=== PATIENT | male | born 1990 | race Caucasian/White ===

== ENCOUNTER 2020-02-19 13:28 | Emergency (ER) | payer BC, SELFPAY ==
--- NOTE | 2020-02-19 13:51 | HMH.EDUTC ---
[facility] [place] Disposition Clinical Impression: Sinusitis Qualifiers: Sinusitis location: maxillary Chronicity: acute Recurrence: non-recurrent Qualified Code(s): J01.00 - Acute maxillary sinusitis, unspecified Disposition: Home, Self-Care Condition on Discharge: Good Instructions: DI for Sinusitis Prescriptions: Amoxicillin/Potassium Clav [Augmentin 875-125 Tablet] 1 tab PO Q12H 10 Days #20 tab Transmission Status: Pending to [facility] #[id number] Referrals: Provider,Referral, [Primary Care Provider] - Time of Disposition: 14:03 Medical Decision Making - Luciano Inquiry Pt receiving controlled substance: No - Lab Data Lab results reviewed: Yes: I reviewed the patient's lab results. [facility] [place] HPI - General Stated complaint: head congestion, marco aches fever soa, weakness Time Seen by Provider: 02/19/20 13:51 - History of Present Illness Provider Complaint: Headache, sinus pain and pressure, body aches, chills, low grade fever since yesterday. History of sinuisitis. Took leftover antibiotics and feeling better. Denies ear pain. Sore throat since this am. No N/V/D. No known COVID19 exposure Onset (ago): day(s) (2) Location: face Relieving factors: none Exacerbating factors: none Associated symptoms: denies other symptoms Treatments prior to arrival: other (antibiotics) - Related Data Previous Rx's Medication Instructions Recorded Amoxicillin/Potassium Clav 1 tab PO Q12H 10 Days #20 tab 02/19/20 [Augmentin 875-125 Tablet] Allergies Allergy/AdvReac Type Severity Reaction Status Date / Time No Known Allergies Allergy Verified 01/04/20 15:11 [facility] History - Hepatitis A Screen Attestation statement:: This patient has been screened for Hepatitis A risk factors. I have reviewed the patient's past medical history: Yes Medical History: Denies:: Cancer, Diabetes Mellitus Type 1, Diabetes Mellitus Type 2, Internal Pacemaker, MRSA, Seizures Other Surgeries: No: Pacemaker Amputation: No Fractures: No Comment: Vasectomy - Social History Smoking Status: Never smoker # Packs/Day (cigarettes): 0 Alcohol Intake: former Alcohol Intake Frequency:: a few times a month Substance Use Type: denies use Occupational Status: employed Housing: house Family Hx:: Unable to obtain ROS Obtained: Yes All systems reviewed & no additional complaints - Constitutional Constitutional: Reports body ache, Reports chills, Reports fever(s), Reports malaise - ENT Ears, Nose, Mouth, and Throat: Reports sinus pain, Reports sinus pressure - Respiratory Respiratory: Yes cough Physical Exam - General General appearance: alert, in no apparent distress - Head Head exam: atraumatic, normocephalic, normal inspection - Eye Eye exam: Present: normal appearance, PERRL, EOMI - ENT ENT exam: Present: normal exam, normal oropharynx, mucous membranes moist, TM's normal bilaterally, normal external ear exam - Expanded ENT Exam Nose exam: Present: sinus tenderness Throat exam: Present: tonsillar erythema - Neck Neck exam: Present: normal inspection, full ROM, trachea midline. Absent: meningismus, lymphadenopathy - Chest Chest inspection: Present: normal inspection, symmetric chest wall rise. Absent: tenderness - Respiratory Respiratory exam: Present: normal lung sounds bilaterally. Absent: respiratory distress - Cardiovascular Cardiovascular exam: Present: regular rate, normal rhythm. Absent: JVD - Abdominal Exam Abdominal exam: Present: soft, normal bowel sounds. Absent: distention, tenderness, guarding - Extremities Exam Extremities exam: Present: normal inspection, full ROM, normal capillary refill. Absent: calf tenderness - Back Exam Back exam: Present: normal inspection. Absent: tenderness - Neurological Exam Neurological exam: Present: alert, oriented X3 - Psychiatric Psychiatric exam: Present: normal affect, normal mood - Skin Skin exam: Present: warm, dry, intact, normal col
[2020-02-19 13:53] VITALS: BP 175/87; PULSE 95; RESP 18; TEMP 36.6; O2SAT 98; BMI 31.1
[2020-02-19 14:10] LABS: UTC Influenza A Antigen Negative (Negative); UTC Influenza B Antigen Negative (Negative); UTC Strep Screen (Rapid) Negative (Negative)
[2020-02-19 14:48] VITALS: BP 175/87; PULSE 95; RESP 18; TEMP 36.6; O2SAT 98
== END 2020-02-19 14:49 | disposition home or self-care (01) ==
PROVIDERS: Emergency Provider Physician Assistant
DX: J01.00 Acute maxillary sinusitis, unspecified (principal)
CPT/HCPCS: 87804; 87880; 99202

== ENCOUNTER → 2021-05-08 09:19 | Outpatient (CLI) | payer BC, SELFPAY ==
--- NOTE | 2021-05-08 | ECG_ITS ---
APPROVED REPORT Exam: Resting ECG HR:71 bpm ECG Measurements Heart Rate 71 AXES UT 128 P 45 QRSd 90 QRS 63 QT 374 T 20 QTc 406 Conclusion Normal sinus rhythm Normal ECG Electronically signed by : Brendon Choi, 05/08/2021 17:31:39
--- NOTE | 2021-05-08 09:34 | XR_ITS ---
PROCEDURE: XR CHEST 2V CLINICAL HISTORY: CHEST PAIN,UNSPECIFIED COMPARISON: No exams were available for comparison FINDINGS: The cardiomediastinal silhouette and pulmonary vascularity are within normal limits. The lungs are clear without infiltrates, suspicious nodules, or pleural effusions. No acute bony abnormalities. IMPRESSION: No acute findings. Dictated by: Benjamin Sheridan MD 05/08/2021 10:03 Benjamin Sheridan MD in [place] 05/08/2021 10:03
[2021-05-08 10:08] LABS: Hemoglobin A1C 5.1 % (4.0-6.0)
[2021-05-08 10:24] LABS: Chloride 104 mmol/L (98-107); Potassium 3.8 mmoL/L (3.5-5.1); Sodium 142 mmol/L (136-145)
[2021-05-08 10:26] LABS: Alanine Aminotransferase 29 U/L (12-78); Aspartate Amino Transferase 24 U/L (17-59); Blood Urea Nitrogen 14 mg/dl (9-20); Estimated Glomerular Filt Rate 71 ml/min (>60); GFR (African American) 85 ML/MIN (>60)
[2021-05-08 10:27] LABS: Albumin Level 4.5 g/dl (3.5-5.0); Albumin/Globulin Ratio 1.4 (1.1-1.8); Alkaline Phosphatase 88 U/L (38-126); Anion Gap 14.8 mEq/L (5-15); Bilirubin,Total 0.3 mg/dl (0.2-1.3); Carbon Dioxide 27 mmol/L (22.0-30.0); Chol/HDL Ratio 5.5 (1-3.5); Cholesterol 199 mg/dl (140-200); Globulin 3.3 g/dL (1.3-3.2); Glucose 98 mg/dl (74-100); HDL Cholesterol 36 mg/dl (40-60); Total Protein,Serum 7.8 g/dl (6.3-8.2); Triglycerides 193 mg/dl (30-150); VLDL Cholesterol 39 mg/dL (0-40)
[2021-05-08 10:38] LABS: Direct LDL Cholesterol 104.27 mg/dL (100-129)
== END ==
PROVIDERS: Visit Provider Family Medicine
DX: R07.9 Chest pain, unspecified (principal); R03.0 Elevated blood-pressure reading, without diagnosis of hypertension; R63.1 Polydipsia
CPT/HCPCS: 36415; 71046; 80053; 80061; 83036; 84443; 93005

== ENCOUNTER 2021-08-17 11:26 | Emergency (ER) | payer BC, SELFPAY ==
[2021-08-17 11:27] VITALS: BP 128/81; PULSE 81; RESP 19; TEMP 36.8; O2SAT 99; BMI 29.0
--- NOTE | 2021-08-17 12:35 | HMH.EDUTC ---
[facility] [place] Clinical Impression: Frequent urination Disposition: Home, Self-Care Condition on Discharge: Good Instructions: Urine Volume Additional Instructions: Follow up with your Family Doctor if symptoms persist Follow up with Dr Hunter if you continue to have urinary symptoms for further evaluation Return if needed Straight to ER if any life threatening symptoms Referrals: Provider,Referral, [Primary Care Provider] - As needed Time of Disposition: 12:38 Medical Decision Making - Luciano Inquiry Pt receiving controlled substance: No Luciano was queried for this patient: No Vital Signs: 08/17/21 11:27 Temperature 98.3 F Temperature Source Oral Pulse Rate [Right Radial] 81 Respiratory Rate 19 Blood Pressure [Right Arm] 128/81 Blood Pressure Mean [Right Arm] 96 02 Sat by Pulse Oximetry 99 - Lab Data Lab results reviewed: Yes: I reviewed the patient's lab results. [facility] [place] - General Stated complaint: possible uti Time Seen by Provider: 08/17/21 12:36 Mode of Arrival: Ambulatory Source of Information: Patient Limitations: No Limitations Description of Symptoms (Recalled from Triage Doc. by RN): Pt c/o frequent urination and possible UTI HEENT Symptoms (Recalled from RN notes): No Resp Symptoms (Recalled from RN notes): No Skin Symptoms (Recalled from RN notes): No MS Symptoms (Recalled from RN notes): No Functional Status (Recalled from RN notes): n/a - History of Present Illness Provider Complaint: Patient states that he wanted to get checked for UTI States that his had a UTI last week and now he noticed he was urinating more than usual and he was worried that he may have UTI and wanted to get checked - Related Data Previous Rx's Medication Instructions Recorded Amoxicillin/Potassium Clav 1 tab PO Q12H 10 Days #20 tab 02/19/20 [Augmentin 875-125 Tablet] Allergies Allergy/AdvReac Type Severity Reaction Status Date / Time No Known Allergies Allergy Verified 01/04/20 15:11 - Worker's Comp Is this a Worker's Comp case?: No [facility] History - Hepatitis A Screen Drug use history?: No High risk sexual behaviors?: No History of sexually transmitted infection?: No Currently employed?: No Childcare worker?: No Do you have indoor plumbing?: Yes Do you have electricity?: Yes Attestation statement:: This patient has been screened for Hepatitis A risk factors. I have reviewed the patient's past medical history: Yes Medical History: Denies:: Cancer, Diabetes Mellitus Type 1, Diabetes Mellitus Type 2, Internal Pacemaker, MRSA, Seizures Other Surgeries: No: Pacemaker Amputation: No Fractures: No Comment: Vasectomy - Social History Smoking Status: Never smoker # Packs/Day (cigarettes): 0 Alcohol Intake: never Alcohol Intake Frequency:: a few times a month Substance Use Type: denies use Occupational Status: other Housing: house Family Hx:: Unable to obtain ROS Obtained: Yes All systems reviewed & no additional complaints, Yes Systems reviewed as appropriate & no additional complaints - Constitutional Constitutional: Reports system reviewed and no additional complaints, except as docu, Denies chills, Denies fever(s) - ENT Ears, Nose, Mouth, and Throat: Reports system reviewed and no additional complaints, except as docu - Cardiovascular Cardiovascular: Reports system reviewed and no additional complaints, except as docu - Respiratory Respiratory: Reports system reviewed and no additional complaints, except as docu - Gastrointestinal Gastrointestingal: Reports: system reviewed and no additional complaints, except as docu. Denies: abdominal pain, cramping - Genitourinary Male Genitourinary: Reports system reviewed and no additional complaints, except as docu, Reports urinary frequency, Reports urinary urgency Physical Exam - General General appearance: alert, in no apparent distress - Respiratory Respiratory exam: Present: normal lung sounds bilatera
[2021-08-17 12:38] LABS: Apearance,Urine Clear (Clear); Color,Urine Yellow (Yellow)
[2021-08-17 12:39] LABS: Bilirubin,Urine Negative (Negative); Blood, Urine Negative (Negative); Glucose,Urine (UA) Negative (Negative); Ketones,Urine Negative (Negative); Protein,Urine Negative (Negative); UTC Leukocyte Esterase,Urine Negative (Negative); UTC Nitrate,Urine Negative (Negative); Urobilinogen,Urine 0.2 EU/dl (0.2)
[2021-08-17 12:45] VITALS: BP 128/81; PULSE 81; RESP 19; TEMP 36.8; O2SAT 99
== END 2021-08-17 12:46 | disposition home or self-care (01) ==
PROVIDERS: Emergency Provider Nurse Practitioner
DX: R35.0 Frequency of micturition (principal)
CPT/HCPCS: 81003; 99202; G0463

== ENCOUNTER 2022-08-31 09:16 | Emergency (ER) | payer BC, SELFPAY ==
[2022-08-31 09:38] VITALS: BP 155/90; PULSE 86; RESP 18; TEMP 37.3; O2SAT 97; BMI 31.4
--- NOTE | 2022-08-31 09:47 | EXP.UTC ---
Discharge Plan Disposition Patient Disposition: Home, Self-Care Condition: Good Prescriptions Prescriptions: New doxycycline monohydrate 100 mg tablet 100 mg PO BID Qty: 20 0RF No Action amoxicillin-pot clavulanate 1 EACH tablet 1 tab PO Q12H 10 Days Qty: 20 0RF Referrals Follow up/Referrals: Joy Lerma PA [Primary Care Provider] - See instructions Activity Restrictions/Add. Instructions Additional Instructions/Restrictions: Change antibiotics to doxycycline. Keep clean and dry. Epsom salt soaks followed by drawing salve. Return to [facility] if symptoms worse, streaking up arm, etc. COVID test pending. Clinical Impressions Clinical Impression: Splinter in skin, Abscess of hand, left Instructions Patient Instructions: DI for Cellulitis -- Adult Discharge ED Provider: Mare Su [facility] [place] HPI General Stated complaint: Fever, headache Mode of Arrival: Ambulatory Source of Information: Patient Limitations: No Limitations Time Seen by Provider: 08/31/22 09:48 Description of Symptoms (Recalled from Triage Doc. by RN): Pt c/o FLETCHER, fever, sore throat, bodayches and weakness x1 week HEENT Symptoms (Recalled from RN notes): Yes (sore throat, FLETCHER) Resp Symptoms (Recalled from RN notes): No Skin Symptoms (Recalled from RN notes): No MS Symptoms (Recalled from RN notes): Yes (bodyaches, weakness) Functional Status (Recalled from RN notes): n/a History of Present Illness Provider Complaint: Patient got splinter in palm of left hand, at base of thumb, 8 days ago. Splinter was from treated fence post. He got a tetanus shot (unsure if Td or Tdap) the next day. Started on Augmentin. 2 days later, started having body aches, chills, headache, malaise. Still has pus draining from left hand and can feel splinter under the skin. Isn't sure if he has a worsening infection, a reaction to the tetanus shot, or a coincidental illness. Onset (ago): day(s) (8) Location: left and upper extremity Severity: moderate Consistency: constant Relieving factors: none Exacerbating factors: none Associated symptoms: fever/chills, headaches and malaise Treatments prior to arrival: other (Augmentin) Related Data Previous Rx's Medication Instructions Recorded amoxicillin 875 mg-potassium 1 tab PO Q12H 10 days #20 tabs 02/19/20 clavulanate 125 mg tablet doxycycline monohydrate 100 mg 100 mg PO BID #20 tabs 08/31/22 tablet Allergies Allergy/AdvReac Type Severity Reaction Status Date / Time No Known Allergies Allergy Verified 01/04/20 15:11 Worker's Comp Is this a Worker's Comp case?: No PFSH PFSH Social History Smoking Status: Never smoker second hand exposure: No alcohol intake: never substance use type: denies use current occupational status: other Travel in the last 8 weeks: None housing: house caffeine: Yes ROS Obtained: Yes All systems reviewed & no additional complaints except as documented Constitutional Constitutional: Reports fever(s), Reports headache(s) and Reports malaise ENT Ears, Nose, Mouth, and Throat: Reports headache(s) and Reports sore throat Musculoskeletal Musculoskeletal: Reports as per HPI Neurologic Neurologic: Reports headache(s) Physical Exam General General appearance: alert and in no apparent distress Head Head exam: atraumatic and normocephalic Eye Eye exam: Present PERRL ENT ENT exam: Present normal exam, normal oropharynx and TM's normal bilaterally Neck Neck exam: Present normal inspection Chest Chest inspection: Present normal inspection and symmetric chest wall rise Respiratory Respiratory exam: Present normal lung sounds bilaterally and respiratory distress Cardiovascular Cardiovascular exam: Present regular rate and normal rhythm Expanded Upper Extremity Exam Left: Hand exam: Present tenderness, swelling and erythema Hand L/R front image: 1. other (puncture wound) Neurological Exam Neurological exam: Present alert a
[2022-08-31 09:57] LABS: UTC Strep Screen (Rapid) Negative (Negative)
--- NOTE | 2022-08-31 10:12 | XR_ITS ---
FINAL REPORT CLINICAL HISTORY: treated hand splinter, still draining FINDINGS: LEFT HAND 3 views of the left hand were obtained. There is no acute fracture or dislocation. Visualized joint spaces are normally aligned. Soft tissues are unremarkable. No foreign body is identified. IMPRESSION: No acute bony abnormality. No foreign body identified. Reviewed, Interpreted and Dictated by Elvin Muñiz III, MD Transcribed by Suzette Odom Authenticated and [facility]
--- NOTE | 2022-08-31 10:15 | PC.NURSE ---
Notified rad of xray
[2022-08-31 10:48] VITALS: BP 155/90; PULSE 86; RESP 18; TEMP 37.3; O2SAT 97
== END 2022-08-31 10:48 | disposition home or self-care (01) ==
PROVIDERS: Emergency Provider Physician Assistant; PCP Physician Assistant
DX: L02.512 Cutaneous abscess of left hand (principal); S60.552A Superficial foreign body of left hand, initial encounter
CPT/HCPCS: 73130; 87880; 99282; C9803; U0003; U0005

== ENCOUNTER 2024-01-30 13:27 | Emergency (ER) | payer BC, SELFPAY ==
--- NOTE | 2024-01-30 13:25 | ECG_ITS ---
APPROVED REPORT Exam: Resting ECG HR:95 bpm ECG Measurements Heart Rate 95 AXES MA 141 P 50 QRSd 88 QRS 54 QT 325 T 42 QTc 377 Conclusion SINUS RHYTHM NORMAL ECG Electronically signed by : MARIANA BOYER, 01/30/2024 21:51:33
[2024-01-30 13:27] VITALS: BP 138/96; PULSE 104; RESP 20; TEMP 36.8; O2SAT 96; BMI 4686.6
--- NOTE | 2024-01-30 13:34 | PC.NURSE ---
er at bedside
[2024-01-30 13:36] VITALS: PULSE 104
--- NOTE | 2024-01-30 13:38 | XR_ITS ---
FINAL REPORT CLINICAL HISTORY: cp COMPARISON: None FINDINGS: A single portable view of the chest was obtained. The heart size and pulmonary vascularity are within normal limits. The mediastinum is within normal limits. No acute pulmonary abnormality is identified. The bony thorax is intact. IMPRESSION: No active cardiopulmonary disease. Reviewed, Interpreted and Dictated by Elvin Muñiz III, MD Transcribed by Makenna Ball Authenticated and . [facility]
[2024-01-30] MEDS: ASPIRIN 81MG CHEWABLE TABLET 324 MG PO (13:44)
--- NOTE | 2024-01-30 13:46 | PC.NURSE ---
portable xray at bedside
--- NOTE | 2024-01-30 13:48 | [facility].EDCP ---
Discharge Plan Disposition Patient Disposition: Home, Self-Care Prescriptions Prescriptions: New atorvastatin 40 mg tablet 40 mg PO DAILY Qty: 30 1RF candesartan 16 mg tablet 16 mg PO DAILY Qty: 30 1RF Referrals Follow up/Referrals: Hermann Cai DO [Staff Physician] - See instructions Hermann Jenkins MD [Staff Physician] - See instructions Provider,MD Wang [Primary Care Provider] - See instructions Activity Restrictions/Add. Instructions Additional Instructions/Restrictions: Call your family doctor to establish care for this visit to the emergency department and schedule follow-up within 48 hours to ensure improvement. If you have any worsening of your condition or any other concerning signs or symptoms, return to the emergency department or your primary care doctor for further evaluation. Take your family doctor you got worked up for cardiac risk factors today in the emergency department. You have high cholesterol, high blood pressure. Atorvastatin and candesartan were sent to the pharmacy to treat these, respectively. Your hemoglobin A1c was pending, but will tell your family doctor about this. Be sure to stay hydrated, you were mildly dehydrated today. Clinical Impressions Clinical Impression: Chest pain, Hyperlipidemia, Hypertension Discharge ED Provider: Abad Yost HPI General Chief Complaint: Chest Pain Stated Complaint: Chest Pain Time Seen by Provider: 01/30/24 13:28 Mode of Arrival: Ambulatory Source of Information: Patient Limitations: No Limitations Description of Symptoms (Recalled from ER Triage Doc. 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 This been going on and off for the past couple of weeks. He supposed be on an antihypertensive, but does not take it due to side effects. States that he has right and substernal chest pressure that radiated up to his neck last night and through this morning. Chest pressure is nonexertional, nonpositional, intermittently comes and goes on its own time. Not related to p.o. intake. Associated with some shortness of breath with exertion, but no nausea, vomiting, diaphoresis, or any other concerns. Please note that above description of symptoms, in this electronic medical record under categorization of recalled from ER triage doctor by RN are reflective of an initial nursing assessment, however, is not reflective of my full history and physical exam that was personally taken and clarified. Consequentially, this preceding description of symptoms, which may include the patient's categorized chief complaint in the EMR, do not reflect my personal clinical impression, and the ultimate description of history of present illness and patient stated complaints should be deferred to this section of the note. Unless stated otherwise or congruent with this section of the note, additional signs, symptoms, or incongruence should be interpreted as inaccurate with my clinical impression. Related Data Previous Rx's Medication Instructions Recorded atorvastatin 40 mg tablet 40 mg PO DAILY #30 tabs 01/30/24 candesartan 16 mg tablet 16 mg PO DAILY #30 tabs 01/30/24 Allergies Allergy/AdvReac Type Severity Reaction Status Date / Time No Known Allergies Allergy Verified 01/30/24 13:36 [facility] Disclaimer: The information contained in this section may have been updated after the patient was seen, as this information can be updated by other users. Social History Smoking Status: Never smoker second hand exposure: No alcohol intake: never substance use type: denies use current occupational status: other Travel in the last 8 weeks: None housing: house caffeine: Yes ROS Obtained: Yes All systems reviewed & no additional complaints except as documented Physical Exam General General appearance: alert Neck Neck exam: Present trachea midline Chest Chest inspection: Present normal inspection and symmetric chest wall rise Respiratory Respiratory exam: Present normal lung sounds bilaterally; Absent respiratory distress, wheezes, stridor, accessory muscle use or prolonged expiratory phase Cardiovascular Cardiovascular exam: Present regular rate and normal rhythm Extremities Exam Extremities exam: Absent edema Neurological Exam Neurological exam: Present alert, oriented X3 and CN II-XII intact Skin Skin exam: Present warm and dry; Absent cyanosis, diaphoresis or pallor HEART Score HEART Score HEART Score assessment performed?: Yes HEART Score: 3 Critical Care Critical Care Time Critical Care Time: No Medical Decision Making Medical Records Medical records reviewed: Yes I reviewed the patient's medical records. Luciano Inquiry Pt receiving controlled substance: No Luciano was queried for this patient: No Vital Signs Vital Signs: 01/30/24 13:27 01/30/24 13:36 01/30/24 14:01 Temperature 98.2 F Temperature Source Oral Pulse Rate 104 H 90 Pulse Rate [Left Radial] 104 H Respiratory Rate 20 Blood Pressure 139/86 Blood Pressure [Right Arm] 138/96 H Blood Pressure Mean [Right Arm] 110 Blood Pressure Source [Right Arm] Automatic Cuff Blood Pressure Position [Right Arm] Sitting 02 Sat by Pulse Oximetry 96 96 Oxygen Delivery Method Room Air 01/30/24 14:30 01/30/24 14:49 Temperature 98.2 F Temperature Source Oral Pulse Rate 98 H 91 H Pulse Rate [Left Radial] Respiratory Rate 20 Blood Pressure 127/85 127/85 Blood Pressure [Right Arm] Blood Pressure Mean [Right Arm] Blood Pressure Source [Right Arm] Blood Pressure Position [Right Arm] 02 Sat by Pulse Oximetry 96 Oxygen Delivery Method Room Air Lab Data Labs: Lab Results 01/30/24 13:30: WBC 6.8, RBC 5.15, Hgb 15.2, Hct 44.5, MCV 86.4, MCH 29.4, MCHC 34.1, RDW 13.4, Plt Count 268, MPV 7.1 L, Neut % (Auto) 56.0, Lymph % (Auto) 34.2, [place] % (Auto) 7.6, Eos % (Auto) 1.4, Baso % (Auto) 0.9, Neut # (Auto) 3.8, Lymph # (Auto) 2.3, [place] # (Auto) 0.5, Eos # (Auto) 0.1, Baso # (Auto) 0.1, Sodium 139, Potassium 4.2, Chloride 106, Carbon Dioxide 27, Anion Gap 10.2, BUN 16, Creatinine 1.30 H, Estimated GFR 63, Est GFR ( Amer) 76, Glucose 104 H, Calcium 9.2, Total Bilirubin 0.5, AST 47, ALT 75, Alkaline Phosphatase 104, Troponin I < 0.01, NT-Pro-B Natriuret Pep 53.6, Total Protein 7.4, Albumin 4.4, Globulin 3.0, Albumin/Globulin Ratio 1.5, Triglycerides 301 H, Cholesterol 248 H, LDL Cholesterol Direct 125.93, VLDL Cholesterol 60 H, HDL Cholesterol 32 L, Cholesterol/HDL Ratio 7.8 H 01/30/24 13:30 01/30/24 13:30 Response Orders (Tests/Meds): ED MEDICATIONS Discontinued Medications Generic Name Dose Route Start Last Admin Trade Name Gilda PRN Reason Stop Dose Admin Aspirin 324 mg 01/30/24 13:38 01/30/24 13:44 Aspirin 81mg Chewable Tablet PO 01/30/24 13:39 324 mg ONCE ONE Administration ORDERS Category Date Time Status CXR --portable [XR chest portable] Stat Exams 01/30/24 13:38 Taken Brain Natriuretic Peptide Stat Lab 01/30/24 13:30 Completed CBC w/Auto Diff [Complete Blood Count Auto Diff] Stat Lab 01/30/24 13:30 Completed CMP [Comprehensive Metabolic Panel] Stat Lab 01/30/24 13:30 Completed Hemoglobin A1C Stat Lab 01/30/24 13:30 Received Lipid Panel Stat Lab 01/30/24 13:30 Completed Trop I [Troponin I] Stat Lab 01/30/24 13:30 Completed Troponin I Q3H Lab 01/30/24 16:45 Ordered Troponin I Q3H Lab 01/30/24 19:45 Ordered MDM Narrative Medical Decision Narrative: 3-year-old male history of hypertension presenting with chest pain. This been going on and off for the past couple of weeks. He supposed be on an antihypertensive, but does not take it due to side effects. States that he has right and substernal chest pressure that radiated up to his neck last night and through this morning. Chest pressure is nonexertional, nonpositional, intermittently comes and goes on its own time. Not related to p.o. intake. Associated with some shortness of breath with exertion, but no nausea, vomiting, diaphoresis, or any other concerns. She noted the patient has hypertension which is uncontrolled, which is likely complicating care. History was obtained via conversation with him and . On arrival, patient hemodynamically stable, alert, oriented x4, appropriate, GCS 15, moving all extremities spontaneously, pupils equal and reactive to light. Full physical exam performed and significant for very well-appearing male no acute distress. Speaking in full sentences, nondiaphoretic, mildly hypertensive. Nontachycardic. Lungs are clear to auscultation bilaterally, patient is neurovascularly intact. No extracardiac sounds, no evidence of lower extremity edema. No pulsatile abdominal mass. Differential includes ACS, MT, hypertensive chest pain, cardiac versus noncardiac chest pain, among others. Patient was given 324 mg aspirin for symptomatic management and correction of underlying abnormalities. Workup independently interpreted and significant for nonactionable CBC or chemistry. Patient mildly dehydrated, but tolerating p.o. intake without issue. Hypertriglyceridemia and hypercholesterolemia. Chest x-ray without acute cardiopulmonary airspace disease. See radiology read for full review of final results. Independent interpretation of EKG shows sinus rhythm 95 beats a minute no ST or T wave changes concerning for acute ischemia. Patient does have epsilon wave versus repolarization abnormality. CT, QRS, QT intervals within normal limits.. Patient placed on continuous cardiac monitoring and continuous pulse ox with initial blood pressure 138/96, heart rate 104, saturation 96 on room air. Because patient well-appearing and symptoms started more than 24 hours prior to this visit, single troponin was deemed appropriate. Troponin negative. Because patient hypertensive with hyperlipidemia, atorvastatin and candesartan were sent to the pharmacy of choice. Is recommended that he follow-up with his family doctor, he scheduled an appointment for tomorrow, 01/30. Cardiology referral was also recommended, information placed here and he is agreeable to outpatient management and workup. Because patient at baseline without signs or symptoms of clinical decompensation, deemed appropriate for discharge. Results were relayed to patient who voiced understanding and were agreeable to outpatient management and follow up. I discussed my clinical impression with patient and answered all questions. At this time, the evidence for any other entities in the differential is insufficient to warrant any further testing or ED observation. This was explained as well. Advisory was given that persistent or worsening symptoms require further evaluation. I confirmed the understanding of this discussion.
[2024-01-30 13:52] LABS: Basophils # 0.1 K/mm3 (0-0.2); Basophils % 0.9 % (0.1-2.0); Eosinophils # 0.1 K/mm3 (0.0-0.4); Eosinophils % 1.4 % (0.1-12.0); Hematocrit 44.5 % (42.0-52.0); Hemoglobin 15.2 g/dL (14.1-18.0); Lymphocytes # 2.3 K/mm3 (0.7-4.5); Lymphocytes % 34.2 % (10-50); Mean Corpuscular HGB Conc 34.1 g/dL (31.8-35.4); Mean Corpuscular Hemoglobin 29.4 pg (27.0-31.2); Mean Corpuscular Volume 86.4 fl (80-94); Mean Platelet Volume 7.1 fl (7.4-10.4); Monocytes # 0.5 K/mm3 (0.1-1.0); Monocytes % 7.6 % (1.7-9.3); Neutrophils # 3.8 K/mm3 (1.8-7.8); Platelet Count 268 K/mm3 (142-424); Red Blood Count 5.15 M/mm3 (4.60-6.20); Red Cell Distribution Width 13.4 % (11.5-17.5); White Blood Count 6.8 K/mm3 (4.8-10.8)
[2024-01-30 14:01] VITALS: BP 139/86; PULSE 90; O2SAT 96
--- NOTE | 2024-01-30 14:04 | PC.NURSE ---
at bedside. bed in lowest position. bp cycling. no questions or concerns voiced at this time. call light within reach.
[2024-01-30 14:08] LABS: Chloride 106 mmol/L (98-107)
[2024-01-30 14:09] LABS: Potassium 4.2 mmoL/L (3.5-5.1); Sodium 139 mmol/L (136-145)
[2024-01-30 14:11] LABS: Alanine Aminotransferase 75 U/L (12-78); Albumin Level 4.4 g/dl (3.5-5.0); Albumin/Globulin Ratio 1.5 (1.1-1.8); Alkaline Phosphatase 104 U/L (38-126); Anion Gap 10.2 mEq/L (5-15); Aspartate Amino Transferase 47 U/L (17-59); Bilirubin,Total 0.5 mg/dl (0.2-1.3); Blood Urea Nitrogen 16 mg/dl (9-20); Carbon Dioxide 27 mmol/L (22.0-30.0); Estimated Glomerular Filt Rate 63 ml/min (>60); GFR (African American) 76 ML/MIN (>60); Total Protein,Serum 7.4 g/dl (6.3-8.2)
[2024-01-30 14:12] LABS: Calcium 9.2 mg/dl (8.4-10.2); Chol/HDL Ratio 7.8 (1-3.5); Cholesterol 248 mg/dl (140-200); Glucose 104 mg/dl (74-100); HDL Cholesterol 32 mg/dl (40-60); Triglycerides 301 mg/dl (30-150); VLDL Cholesterol 60 mg/dL (0-40)
[2024-01-30 14:23] LABS: Direct LDL Cholesterol 125.93 mg/dL (100-129)
[2024-01-30 14:24] LABS: NT Pro Brain Natriuretic Pep. 53.6 pg/mL (0-125)
[2024-01-30 14:30] VITALS: BP 127/85; PULSE 98; O2SAT 96
[2024-01-30 14:34] LABS: Troponin I < 0.01 ng/ml (0.00-0.034)
[2024-01-30 14:49] VITALS: BP 127/85; PULSE 91; RESP 20; TEMP 36.8; O2SAT 96
[2024-01-30 15:18] LABS: Hemoglobin A1C 5.6 % (4.0-6.0)
== END 2024-01-30 14:58 | disposition home or self-care (01) ==
PROVIDERS: Emergency Provider Emergency Medicine
DX: R07.9 Chest pain, unspecified (principal); M54.2 Cervicalgia; R06.02 Shortness of breath; I10 Essential (primary) hypertension; E78.5 Hyperlipidemia, unspecified
CPT/HCPCS: 71045; 80053; 80061; 83036; 83880; 84484; 85025; 93005; 99285

== ENCOUNTER 2024-03-03 10:03 | Outpatient (CLI) | payer BC, SELFPAY | END 2024-03-03 23:59 | disposition home or self-care (01) | LOC: LAB.DROPOF 03-04 10:03 | PROVIDERS: PCP Student in an Organized Health Care Education/Training Program; Visit Provider Student in an Organized Health Care Education/Training Program | DX: R05.9 Cough, unspecified (principal); J02.0 Streptococcal pharyngitis; B95.0 Streptococcus, group A, as the cause of diseases classified elsewhere | CPT/HCPCS: 87070 ==

== ENCOUNTER 2024-03-11 12:13 | Outpatient (CLI) | payer BC, SELFPAY ==
--- NOTE | 2024-03-11 12:13 | CA_ITS ---
APPROVED REPORT EXAM: Comprehensive 2D, Doppler, and color-flow Echocardiogram Stroke Belt Sander Operator: Carin Hubbard, TEODORA, RVS Ht: 6 ft 0 in Wt: 248lbs BSA: 2.33 BP: 145/73 mmHg Indications: CP, Abn EKG, HTN, HLD, Family h/o heart disease 2D Dimensions Left Atrium 3.22 cm M: 3.0 - 4.0 LA Volume 51.80 mL LA Volume Index 22.23 mL/m2 (M/F) 16-34 M-Mode Dimensions RVDd 2.47 cm (0.9-2.6) LA Diam 3.37 cm (1.9-4.0) LVDd 4.59 cm (3.5-5.7) LVDs 3.28 cm (3.5-5.7) IVSd 1.00 cm (0.6-1.1) PWd 0.91 cm (0.6-1.1) EF (Teich) 55.10% EPSs 0.47 cm FS 28.50% EDV (Teich) 96.80 mL TAPSE 2.00 (<1.7) ESV (Teich) 43.50 mL LV Diastology E Decel Time 167 (160-240 msec) E/A Ratio 1.17 MED A' 9.00 cm/s LAT A' 8.00 cm/s Aortic Valve EULALIA Index 1.29 cm2/m2 AoV Peak Cleve. 114.0 (50-130 cm/s) AO Peak GR. 5.20 mmHg AO Mean GR. 2.60 (<5 mmHg) AO VTI 22.4 (18-25 cm) EULALIA (VTI) 3.09 (2.5-4.5 cm2) Mitral Valve MV A Velocity 70.0 (40-130 cm/s) E/A Ratio 1.17 Pulmonary Valve PV Peak Velocity 84.0 (50-150 cm/s) MT End VMAX 147.0 cm/s Tricuspid Valve TR P. Velocity 159.00 cm/s RAP Estimate 10.00 mmHg RVSP 20.10 mmHg Left Ventricle The left ventricle is normal size. The left ventricular systolic function is normal. The left ventricular ejection fraction is within the normal range. There is normal left ventricular wall thickness. There is normal LV segmental wall motion. The left ventricular diastolic function is normal. LVEF is 50-55%. Right Ventricle The right ventricle is normal size. The right ventricular systolic function is normal. Atria The left atrium size is normal. The right atrium size is normal. There is no Doppler evidence of interatrial shunt. Aortic Valve The aortic valve opens well. There is no aortic valvular stenosis. No aortic regurgitation is present. Mitral Valve The mitral valve is normal in structure. No evidence of mitral valve stenosis. Trace mitral regurgitation. Tricuspid Valve The tricuspid valve leaflets are thin and pliable. Trace tricuspid regurgitation. There is insufficient TR jet to estimate RVSP. Pulmonic Valve The pulmonary valve is normal in structure. Trace pulmonic regurgitation. Great Vessels The aortic root is normal in size. The ascending aorta is not well visualized. IVC is normal in size and collapses >50% with inspiration. Pericardium There is no pericardial effusion. Other Information Study Quality: Fair Conclusion Normal biventricular systolic function. No significant valvular stenosis or regurgitation. Electronically signed by : Stacey Villa MD 03/15/2024 19:01:35
--- NOTE | 2024-03-11 14:17 | CA_ITS ---
APPROVED REPORT Exam: Exercise Treadmill Technologist: Sendy Israel Ht: 6 ft 0 in Wt: 243 lbs BSA: 2.31 m2 HR: 78 bpm BP: 124/89 mmHg Rhythm: NSR Indications: Abnormal ekg Medical History Medications: Atorvastatin,,,,, CaNDESARTAN,,,,, Stress Test Details Test: Dany HR Resting HR: 86 bpm Max Heart Rate (APMHR): 186 bpm Max HR Achieved: 174 bpm Target HR (85% APMHR): 158 bpm % of APMHR: 94 Recovery HR: 98 bpm HR response to stress: Normal HR response to stress BP Resting BP: 124.0/89.0 mmHg Max BP: 186.0/88.0 mmHg Recovery BP: 134.0/92.0 mmHg BP response to stress: Normal blood pressure response to stress. ECG Resting ECG: Normal sinus rhythm Stress ECG: < 0.[address] depression Arrhythmia: None Recovery ECG: Return to baseline within 3 minutes of recovery Recovery Arrhythmia: None Clinical Exercise duration: 09:52 min Highest Stage Achieved: Exercise capacity: 12.8 METs Overall Exercise Capacity for Age: Average Stress ECG Conclusion Patient exercised 9:52 on Dany Protocol. Test stopped due to leg fatigue and shortness of breath. He was able to achieve a total of 12.8 METS. He has average exercise capacity compared to age and sex matched peers. He has normal HR and BP response to exercise. Symptoms: Slight increase in pre test chest discomfort with exercise. Arrhythmias/Ectopy: None ST-T Changes: Normal ST response to exercise. Conclusion: Average exercise capacity. Chest pain at peak stress. At peak stress, no evidence of ST changes was noted. Overall normal GXT. GXT only (no imaging). Test Summary REST . . . . . . . Sitting REST . . . . . . . Standing REST 02:18 0.0 0.0 86 . 124/ 89 . . Stage 1 01:00 10.0 1.7 105 . . . . Stage 1 02:00 10.0 1.7 108 . . . . Stage 1 03:00 10.0 1.7 109 . 150/ 90 . . Stage 2 01:00 12.0 2.5 120 . . . . Stage 2 02:00 12.0 2.5 122 . . . . Stage 2 03:00 12.0 2.5 128 . 156/ 90 . . Stage 3 01:00 14.0 3.4 142 . . . . Stage 3 02:00 14.0 3.4 148 . . . . Stage 3 03:00 14.0 3.4 155 . 186/ 88 . . Stage 4 00:52 16.0 4.2 172 . . . Stop exercise at 09:52 RECOVERY 01:00 0.0 0.0 148 . . . . RECOVERY 02:00 0.0 0.0 115 . . . . RECOVERY 03:00 0.0 0.0 105 . 150/ 95 . . RECOVERY 04:00 0.0 0.0 103 . 150/ 95 . . RECOVERY 05:00 0.0 0.0 100 . 156/ 90 . . RECOVERY 06:00 0.0 0.0 99 . 171/ 87 . . RECOVERY 07:00 0.0 0.0 101 . 171/ 87 . . RECOVERY 08:00 0.0 0.0 99 . 134/ 92 . . RECOVERY 08:12 0.0 0.0 99 . 134/ 92 . . Electronically signed by : Stacey Villa MD 03/17/2024 01:22:53
== END 2024-03-11 23:59 | disposition home or self-care (01) ==
LOC: RT 12:13
PROVIDERS: PCP Student in an Organized Health Care Education/Training Program; Visit Provider Internal Medicine
DX: R94.31 Abnormal electrocardiogram [ECG] [EKG] (principal); R07.9 Chest pain, unspecified; E78.5 Hyperlipidemia, unspecified; I10 Essential (primary) hypertension; E66.9 Obesity, unspecified; Z68.32 Body mass index [BMI] 32.0-32.9, adult; Z82.49 Family history of ischemic heart disease and other diseases of the circulatory system
CPT/HCPCS: 93017; 93018; 93306

== ENCOUNTER 2024-07-21 09:24 | Outpatient (CLI) | payer BC, SELFPAY ==
--- NOTE | 2024-07-21 09:42 | XR_ITS ---
FINAL REPORT CLINICAL HISTORY: low back pain after fall COMPARISON: None FINDINGS: LUMBAR SPINE: AP and lateral views of the lumbar spine were obtained. There is no prior exam for comparison. There is no acute fracture or malalignment. Vertebral body height is preserved. Disc space height is preserved. No acute paraspinal abnormality. IMPRESSION: No acute bony abnormality identified. Reviewed, Interpreted and Dictated by Elvin Muñiz III, MD Transcribed by Makenna Blal Authenticated and [facility]
--- NOTE | 2024-07-21 09:42 | XR_ITS ---
FINAL REPORT CLINICAL HISTORY: RLE pain, knot after fall COMPARISON: None FINDINGS: RIGHT TIBIA FIBULA: There is no acute fracture or dislocation. The joint spaces are intact. There is no soft tissue abnormality. IMPRESSION: No acute fracture Reviewed, Interpreted and Dictated by Elvin Muñiz III, MD Transcribed by Makenna Ball Authenticated and [facility]
[2024-07-21 10:24] LABS: Basophils # 0.1 K/mm3 (0-0.2); Basophils % 0.9 % (0.1-2.0); Eosinophils # 0.1 K/mm3 (0.0-0.4); Eosinophils % 1.1 % (0.1-12.0); Hemoglobin 15.4 g/dL (14.1-18.0); Lymphocytes % 33.6 % (10-50); Mean Corpuscular HGB Conc 32.8 g/dL (31.8-35.4); Mean Corpuscular Volume 88.5 fl (80-94); Mean Platelet Volume 8.3 fl (7.4-10.4); Monocytes # 0.5 K/mm3 (0.1-1.0); Monocytes % 8.6 % (1.7-9.3); Neutrophils # 3.3 K/mm3 (1.8-7.8); Neutrophils % 55.8 % (37.0-80.0); Platelet Count 276 K/mm3 (142-424); Red Cell Distribution Width 14.2 % (11.5-17.5)
[2024-07-21 10:36] LABS: Hemoglobin A1C 5.5 % (4.0-6.0)
[2024-07-21 10:52] LABS: Alanine Aminotransferase 45 U/L (12-78); Albumin Level 4.4 g/dl (3.5-5.0); Albumin/Globulin Ratio 1.2 (1.1-1.8); Alkaline Phosphatase 76 U/L (38-126); Anion Gap 9.8 mEq/L (5-15); Aspartate Amino Transferase 36 U/L (17-59); Bilirubin,Total 0.5 mg/dl (0.2-1.3); Blood Urea Nitrogen 22 mg/dl (9-20); Calcium 9.7 mg/dl (8.4-10.2); Carbon Dioxide 29 mmol/L (22.0-30.0); Chloride 105 mmol/L (98-107); Chol/HDL Ratio 5.3 (1-3.5); Cholesterol 251 mg/dl (140-200); Estimated Glomerular Filt Rate 76 ml/min (>60); GFR (African American) 92 ML/MIN (>60); Globulin 3.6 g/dL (1.3-3.2); Glucose 99 mg/dl (74-100); HDL Cholesterol 47 mg/dl (40-60); Potassium 4.8 mmoL/L (3.5-5.1); Sodium 139 mmol/L (136-145); Triglycerides 168 mg/dl (30-150); VLDL Cholesterol 34 mg/dL (0-40)
[2024-07-21 11:03] LABS: Direct LDL Cholesterol 143.74 mg/dL (100-129)
[2024-07-21 11:09] LABS: 25-OH Vitamin D, Total 42.9 ng/mL (30-100)
[2024-07-21 11:24] LABS: Thyroid Stimulating Hormone 2.12 uIU/mL (0.465-4.68)
[2024-07-21 12:00] LABS: Vitamin B12 484 pg/mL (239-931)
[2024-07-21 12:02] LABS: Folate 4.67 ng/mL
[2024-07-21 12:06] LABS: Iron 87 ug/dL (49-181)
[2024-07-21 12:16] LABS: Total Iron Binding Capacity 295 ug/dL (261-462)
[2024-07-21 12:42] LABS: Ferritin 89.5 ng/ml (17.9-464)
[2024-07-21 13:45] LABS: HIV (1&2) Antibody Rapid NONREACTIVE (NONREACTIVE)
[2024-07-22 08:49] LABS: HCV Ab Non Reactive (Non Reactive)
[2024-08-01 21:07] LABS: Testosterone, Total, LC/MS 372 ng/dL (.)
== END 2024-07-21 23:59 | disposition home or self-care (01) ==
PROVIDERS: PCP Student in an Organized Health Care Education/Training Program; Visit Provider Student in an Organized Health Care Education/Training Program
DX: R53.83 Other fatigue (principal); Z11.59 Encounter for screening for other viral diseases; E78.2 Mixed hyperlipidemia; I10 Essential (primary) hypertension; Z13.21 Encounter for screening for nutritional disorder; Z13.29 Encounter for screening for other suspected endocrine disorder; R73.9 Hyperglycemia, unspecified; Z11.4 Encounter for screening for human immunodeficiency virus [HIV]; M79.604 Pain in right leg; W19.XXXA Unspecified fall, initial encounter; M54.50 Low back pain, unspecified
CPT/HCPCS: 36415; 72100; 73590; 80050; 80053; 80061; 82306; 82607; 82728; 82746; 83036; 83540; 83550; 84403; 84443; 85025; 86803; 87389

== ENCOUNTER 2024-07-22 13:06 | Outpatient (CLI) | payer BC, SELFPAY ==
--- NOTE | 2024-07-22 13:07 | CA_ITS ---
FINAL REPORT TECHNIQUE: Color Doppler, duplex Doppler and compression sonography of the right lower extremity venous system was performed. CLINICAL HISTORY: RLE PAIN,KNOT FRONT OF PROXIMAL SHERMAN S/P FALL COMPARISON: None FINDINGS: There is no evidence of deep venous thrombosis right lower extremity from the level of the groin to the calf. The veins are patent and compressible. IMPRESSION: No evidence of deep venous thrombosis right lower extremity. Reviewed, Interpreted and Dictated by Elvin Muñiz III, MD Transcribed by Makenna Ball Authenticated and [facility]
== END 2024-07-22 23:59 | disposition home or self-care (01) ==
LOC: RT 13:06
PROVIDERS: PCP Student in an Organized Health Care Education/Training Program; Visit Provider Student in an Organized Health Care Education/Training Program
DX: M79.604 Pain in right leg (principal)
CPT/HCPCS: 93971

== ENCOUNTER 2024-08-11 06:13 | Outpatient (CLI) | payer SELFPAY ==
--- NOTE | 2024-08-11 06:24 | CT_ITS ---
APPROVED REPORT Ware Tester: CLINICAL INDICATION Risk stratification TECHNIQUE Image Acquisition: A 128 slice MDCT scanner ([employer] View) was used for data acquisition. A noncontrast coronary calcium scan was performed. A CT attenuation threshold of 130 Hounsfield units (HU) was used for the detection of calcium in contiguous voxels of 1 sq mm in area to be counted as individual lesions. A tube voltage of 120 KVp was used. The patient received no medications prior to the coronary calcium CT. Image Reconstruction Transaxial images were reconstructed at 0.67 mm slide thickness. Data was reviewed interactively on an advanced workstation capable of 2 and 3-dimensional displays in all conventional reconstruction formats, including multiplanar reformations, maximum intensity projections, curved multiplanar reformations, and volume rendered reconstructions. When applicable, selected routine images describing the relevant coronary anatomy and pathology were saved and sent to PACS. Complications None Technical Quality Overall image quality was good. Total DLP (Dose-Length Product) is 161.9 mGy-cm. The reported value represents the total of one or more individual components during the CT acquisition of this date and at this time, and as such, the same value may appear in more than one CT report depending on the interpreting/reporting physicians. COMPARISON None FINDINGS CT Coronary Calcium Scoring LMA (Left Main Artery) = 0 LAD (Left Anterior Descending) = 0 LCX (Left Coronary Circumflex) = 0 RCA (Right Coronary Artery) = 0 Total Calcium Score = 0 using the AJ-130 method. There is no identifiable calcification in the aortic valve, mitral annulus or mitral valve, pericardium, or myocardium. IMPRESSION -Coronary artery calcification is absent. -Total Calcium Score (Agatston Score) = 0 using the AJ-130 method. The interpretation of the calcium heart score is based on the following continuum*: 0 = no calcified plaque detected (risk of coronary artery disease is very low ??? less than 5%) 1-10 = calcium detected in extremely minimal levels (risk of coronary diseases is still low ??? less than 10%) 11-100 = mild levels of plaque detected with certainty (mild or minimal narrowing of heart arteries is likely) 101-400 = definite,at least moderate levels of plaque detected (relatively high risk of a heart attack within 3-5 years) >401-999 = extensive levels of plaque detected (high risk of heart attack, high levels of vascular disease are present, high likelihood of at least one significant coronary narrowing) *The calcium heart score quantifies the burden of coronary calcification/plaque in the coronary arteries. The calcium heart score does not evaluate the presence or the burden of non-calcified (i.e. soft) plaque. The coronary and cardiac findings of this Coronary Calcium CT were reviewed, reported, and signed by Rodney Villa MD (Building Construction Engineer). Conclusion Electronically signed by : Stacey Villa MD 08/11/2024 12:48:33
== END 2024-08-11 23:59 | disposition home or self-care (01) ==
PROVIDERS: PCP Student in an Organized Health Care Education/Training Program; Visit Provider Physician Assistant
DX: E78.2 Mixed hyperlipidemia (principal); Z82.49 Family history of ischemic heart disease and other diseases of the circulatory system
CPT/HCPCS: 75571